=== PATIENT | female | born 1950 | race Caucasian/White ===

== ENCOUNTER 2016-06-27 07:14 | Emergency (ER) | payer MEDICARE, OTHER ==
[~2016-06-27] VITALS: Ht 162.6 cm; Wt 70.5 kg
[2016-06-27 07:27] VITALS: BP 150/88; PULSE 61; RESP 14; O2SAT 95
[2016-06-27] MEDS ORDERED: 0.9% Sodium Chloride 1,000 ML IV ONE (07:43)
[2016-06-27] MEDS ORDERED: cefTRIAXone Inj 2,000 MG in IV Premix 1 EACH IV ONE (07:45)
--- NOTE | 2016-06-27 07:51 | ED.REPORT ---
HPI- Female Date of Service Jun 27, 2016 ED Provider: Minda Frazier MD Pt is a 66 y/o female presenting to the ED c/o UTI-like symptoms onset 5 days ago. Pt reports that she had a bladder mesh placed 15 years ago and noticed about 3 weeks ago that she has had some decreased urination which she describes as "being able to urinate only when she leans forward". 5 days ago, she developed right upper CVA pain and believed her "bladder was aching". She went to Urgent Care in [facility] yesterday and she was diagnosed with a UTI and started on Cipro. She has had 1 dose and now feels nauseated and her symptoms have not improved. She denies fever, chills, vomiting. She was told to come in to the ED because of possible complications with her bladder mesh. Nursing Notes Stated Complaint: POSS KIDNEY/BLADDER INFECTION Chief Complaint: General Complaint Nursing Notes Reviewed: Yes Allergies: Coded Allergies: Contrast Media (Verified Allergy, Severe, stopped breathing, 06/27/16) Penicillins (Verified Allergy, Intermediate, hives, and swelling, 06/27/16) General Time Seen by MD: 07:42 Chief Complaint Other (UTI-like) Hx Obtained From: Patient Arrived By: Walk-in Sudden in Onset?: No Onset Occurred: 5 days ago Symptom Duration: Since onset Location: : Flank right Quality: Painful Severity: Current: Mild Severity: Maximum: Mild Recent Healthcare: Recent doctor visit, Previous diagnosis Past Medical History Past Medical History Notes: Iodine allergy: anaphylaxis Past Medical History Hx urinary incontinence, s/p bladder mesh Hx pyelonephritis Past Surgical History Bladder mesh Bladder lift Partial hysterectomy Ambulatory Status Independent Review of Systems Constitutional: Denies: Chills, Fever GI: Reports: Nausea, Denies: Vomiting Female: Reports: Dysuria, Urination decreased Complete sys rev & neg: except as marked. Physical Exam Initial Vital Signs Vital Signs (First) Date Time Temp Pulse Resp B/P Pulse Ox O2 Delivery O2 Flow Rate FiO2 06/27/16 07:27 36.2 61 14 150/88 95 06/27/16 09:51 Room Air Initial VS: Reviewed, Vital signs normal Head / Eyes: Atraumatic, Normocephalic, PERRL ENT: Mucous membranes moist, Conjunctiva normal, No scleral icterus Neck: Supple, Full range of motion Respiratory: Breath sounds normal, Clear to auscultation, No respiratory distress Extremities: Vascular intact, Neuro intact, No swelling, No tenderness Skin: Warm, Dry, No cyanosis Neurologic: Alert, Oriented, Nonfocal Psychiatric: Mood/affect normal, Behavior normal, Normal thought content Female Genitourinary: Atraumatic, External genitalia NL, No bleeding, No discharge Vaginal mesh appreciated. Not poking through the vaginal wall. Non-tender to palpation. No cervix. Tenderness along the anterior vaginal wall / posterior bladder wall Grade II cystocele General/Constitutional: Awake, Alert, No acute distress, Cooperative, Not toxic appearing Cardiovascular: Heart rate NL, Regular rhythm, Cap refill not delayed, Peripheral circulation NL Heart Sounds / Murmur: Positive: Systolic murmur present.. (II/) Abdomen: Atraumatic, Soft, Non-tender, No guarding, No rebound, BS normoactive , No distention, No palpable mass Back: Atraumatic, Full range of motion, Painless range of motion, No CVA tenderness Interpretation & Diagnostics Interpretation & Diagnostics: CT KUB w/out contrast: IMPRESSION: 1. No aspiration for right flank pain. 2. No evidence of urinary tract calcification, nor obstruction. 3. Normal appendix. 4. Small hiatal hernia. Dictated by: Jessica Carlson M.D. on 06/27/2016 at 10:35 Approved by: Jessica Carlson M.D. on 06/27/2016 at 10:35 Lab Results Interpretation Result Diagram: 06/27/16 0825 06/27/16 0825 Test 06/27/16 08:00 06/27/16 08:25 Urine Color Straw (YELLOW) Urine Appearance Hazy (CLEAR,HAZY) Urine pH 7.0 (5.0-8.0) Urine Specific [place] 1.010 (1.003-1.035) Urine Protein Negativemg/dL (NEG,TRACE) Urine Glucose (UA) Negativemg/dL (NEGATIVE) Urine Ketones Tracemg/dL (NEGATIVE) Urine Occult Blood Negative (NEGATIVE) Urine Nitrite Negative (NEGATIVE) Urine Bilirubin Negative (NEGATIVE) Urine Urobilinogen Normalmg/dL (NORMAL) Urine Leukocyte Esterase Negative (NEGATIVE) Urine RBC 0-2/hpf (0-2) Urine WBC 0-5/hpf (0-5) Urine Epithelial Cells Occasional/hpf (NONE-MOD) Urine Crystals None seen (NONE SEEN) Urine Bacteria None/hpf (NONE-FEW) Urine Hyaline Casts None/lpf (NONE) Urine Granular Casts None seen (NONE SEEN) Urine Waxy Casts None seen (NONE SEEN) Urine Red Blood Cell Casts None seen (NONE SEEN) Urine White Blood Cell Casts None seen (NONE SEEN) Urine Mucus None seen (None Seen) Urine Trichomonas None seen (NONE SEEN) Urine Yeast None (NONE SEEN) Urinalysis Comment None Urine Culture Reflexed Not indicated White Blood Count 8.4th/mm3 (3.8-10.1) Red Blood Count 4.44mil/mm3 (3.90-5.20) Hemoglobin 13.6g/dL (12.0-15.6) Hematocrit 38.8% (35.0-46.0) Mean Corpuscular Volume 87.4fL (81-100) Mean Corpuscular Hemoglobin 30.6pg (27.0-35.0) Mean Corpuscular Hemoglobin Concent 35.1% (32.0-37.0) Red Cell Distribution Width 13.3% (12.3-15.4) Platelet Count 249bil/L (150-400) Neutrophils (%) (Auto) 76.5% (40-74) Lymphocytes (%) (Auto) 15.7% (14-46) Monocytes (%) (Auto) 5.9% (4-12) Eosinophils (%) (Auto) 1.3% (0-5) Basophils (%) (Auto) 0.5% (0-3) Sodium Level 131mEq/L (134-144) Potassium Level 3.2mEq/L (3.5-5.2) Chloride Level 91mEq/L (97-108) Carbon Dioxide Level 25mmol/L (18-29) Blood Urea Nitrogen 7mg/dL (8-27) Creatinine 0.51mg/dL (0.57-1.00) Estimat Glomerular Filtration Rate 172mL/min (>59) Glucose Level 112mg/dL (60-99) Lactic Acid Level 0.8mmol/L (0.4-2.0) Calcium Level 9.7mg/dL (8.5-10.1) Total Bilirubin 0.3mg/dL (0.0-1.2) Aspartate Amino Transf (AST/SGOT) 16U/L (0-50) Alanine Aminotransferase (ALT/SGPT) 10U/L (0-32) Alkaline Phosphatase 40U/L (25-165) Total Protein 7.1g/dL (6.4-8.4) Albumin 4.3g/dL (3.4-5.0) Re-Eval/Medical Decision Re-Evaluation/Progress : Time of Eval: 10:48 Patient Status: Condition improved Re-Evaluation/Progress Note: Pt rechecked. Discussed lab and imaging results. Informed pt of plan for treatment. Pt understands and agrees with plan for treatment. F/U and RTER warnings given. All questions addressed. Counseled Regarding: Diagnosis, Lab results, Need for follow-up, When/why to return to ED Discharge & Departure Impression: Primary Impression: Malaise Additional Impression: Hypokalemia Ruled Out: Kidney stone, Pyelonephritis, UTI (urinary tract infection) Disposition: Home Discharge Condition All VS Reviewed: Yes Condition: Stable Additional Instructions: I am encouraged by your workup. Your urine was perfectly clear today but has been cultured based on the sample from yesterday. Your white blood cell count, the cells that fight infection, is normal Your potassium is a little bit low, you were given a dose of potassium in the ER Your kidney function reflects drinking quite a bit of water recently. Perhaps even too much. A good rule of thumb is to drink when you are thirsty. You can gauge your hydration on your urine, the goal is light yellow, but still a bit of color. You do have slight cystocele (your bladder falling). Please followup with your paleontology teacher surgeon to see options for addressing this I hope you feel better soon. Referrals: Peggy Martinez (PCP) [facility] Attestation Portions of this note were transcribed by Kamaljti Prasad. I, Dr. Frazier personally performed the history, physical exam and medical decision-making; I reviewed and confirmed the accuracy of the information in the transcribed note. Signed by Marcella Goodrich, 06/27/16 - 0900 copies to: Peggy Martinez Shawna L MD Jun 27, 2016 07:51 KAMALJIT PRASAD Jun 27, 2016 07:54
[2016-06-27 08:48] LABS: BASOPHILS % (AUTO) 0.5 % (0-3); EOSINOPHILS % (AUTO) 1.3 % (0-5); MONOCYTES % (AUTO) 5.9 % (4-12); Mean Corpuscular Hemoglobin 30.6 pg (27.0-35.0); Mean Corpuscular Volume 87.4 fL (81-100); NEUTROPHILS % (AUTO) 76.5 % (40-74); Platelet Count 249 bil/L (150-400)
[2016-06-27 09:13] LABS: APPEARANCE,URINE HAZY (CLEAR,HAZY); COLOR,URINE STRAW (YELLOW)
[2016-06-27 09:14] LABS: OCCULT BLOOD,URINE NEGATIVE (NEGATIVE); UROBILINOGEN,URINE NORMAL (NORMAL)
[2016-06-27 09:51] VITALS: BP 141/63; PULSE 56; RESP 16; O2SAT 98
--- NOTE | 2016-06-27 10:37 | DRSVH ---
PROCEDURE: CT KUB ([id number]) INDICATIONS: flank pain Right, TECHNIQUE: Noncontrast 5 mm thick sections acquired from the diaphragms to the symphysis. 5 mm thick coronal an d sagittal reformats were then performed. For radiation dose reduction, the following was used: aut omated exposure control, adjustment of mA and/or kV according to patient size. COMPARISON: None. FINDINGS: Image quality: Excellent. Lung bases: Left basilar scarring versus atelectasis is present. Lung bases are otherwise clear. Hea rt size is normal. Urinary system: Both kidneys are normal in size. No kidney stones. No hydronephrosis or perinephri c fat stranding. Both ureters appear non-dilated throughout their expected courses. Urinary bladder is decompressed. Other solid organs: Liver and spleen are normal in size. Gallbladder is within normal limits. Panc reas is normal in contours. No adrenal nodules. Peritoneum and bowel: A small hiatal hernia is present. Unenhanced bowel loops demonstrate normal wal l thickness and caliber. No free fluid or air. Normal appendix. Nodes and vessels: No retroperitoneal or mesenteric adenopathy by size criteria. Aorta and inferior vena cava are normal in caliber. Abdominal wall: No ventral hernias. Pelvis: No free pelvic fluid. No inguinal hernias or adenopathy. Bones: No suspicious bony lesions. No vertebral body compression fractures. IMPRESSION: 1. No aspiration for right flank pain. 2. No evidence of urinary tract calcification, nor obstruction. 3. Normal appendix. 4. Small hiatal hernia. Dictated by: Jessica Carlson M.D. on 06/27/2016 at 10:35 Approved by: Jessica Carlson M.D. on 06/27/2016 at 10:35
[2016-06-27] MEDS ORDERED: Potassium Chloride 20 mEq SR Tablet PO ONE (10:45)
[2016-06-27 11:22] VITALS: BP 141/63; PULSE 56; RESP 16; O2SAT 98
[2016-09-24] MEDS ORDERED: ALPR1TAB7 PO (11:40)
[2016-09-24] MEDS ORDERED: MULT-1018 PO (11:40)
[2016-09-24] MEDS ORDERED: CHOL500011 PO (11:40)
[2016-09-24] MEDS ORDERED: POLY17PO6 PO (11:40)
[2016-09-24] MEDS ORDERED: HYDR25TA4 PO (11:40)
[2016-09-24] MEDS ORDERED: biotin (11:40)
[2016-09-24] MEDS ORDERED: DIPH25CA6 PO (11:40)
[2016-09-24] MEDS ORDERED: selenium PO (11:40)
[2016-09-24] MEDS ORDERED: ALBU18HF INH (11:40)
[2016-09-24] MEDS ORDERED: MAGN400T39 PO (11:40)
[2016-09-24] MEDS ORDERED: POTA99TA21 PO (11:40)
== END 2016-06-27 11:22 | disposition home or self-care (01) ==
LOC: SED 07:14
DX: R53.81 Other malaise (principal); E87.6 Hypokalemia; Z88.0 Allergy status to penicillin; Z91.041 Radiographic dye allergy status
CPT/HCPCS: 36415; 74176; 80053; 81000; 83605; 85025; 87040; 87086; 96365; 96375; 99285; J0696; J7030

== ENCOUNTER 2016-09-25 05:36 | Day surgery (SDC) | payer MEDICARE, OTHER ==
[2016-09-25] VITALS (15 sets, daily range): BP systolic 98–136; BP diastolic 48–77; PULSE 54–71; RESP 8–16; O2SAT 92–97
[~2016-09-25] VITALS: Ht 162.6 cm; Wt 74.0 kg
[~2016-09-25 05:36] MED LIST: ALBU18HF INH; ALPR1TAB7 PO; CHOL500011 PO; DIPH25CA6 PO; HYDR25TA4 PO; MAGN400T39 PO; MULT-1018 PO; POLY17PO6 PO; POTA99TA21 PO; biotin; selenium PO
[2016-09-25] MEDS ORDERED: Neostigmine 1 mg/mL 10 mL Inj ONE (05:37)
[2016-09-25] MEDS ORDERED: Ondansetron 2 mg/mL 2 mL Inj ONE (05:37)
[2016-09-25] MEDS ORDERED: fentaNYL-PF 50 mCg/mL 2 mL Inj ONE (05:37)
[2016-09-25] MEDS ORDERED: Glycopyrrolate 0.2 MG/ML 1mL Inj ONE (05:37)
[2016-09-25] MEDS ORDERED: Dexamethasone 4 mg/mL Inj ONE (05:37)
[2016-09-25] MEDS ORDERED: Propofol 10,000 mCg/mL 20 mL Inj ONE (05:37)
[2016-09-25] MEDS ORDERED: MetoCLOpramide 5 mg/mL 2 mL Inj ONE (05:37)
[2016-09-25] MEDS: Lactated Ringer's 1,000 ML IV SCH ×2 (05:39→07:30)
[2016-09-25] MEDS ORDERED: metroNIDAZOLE Inj 500 MG in IV Premix 1 EACH IV ONE (06:00)
[2016-09-25] MEDS ORDERED: GENTAMICIN IV ONE (06:00)
[2016-09-25] MEDS ORDERED: SODIUM CHLORIDE 0.9% IV ONE (06:00)
--- NOTE | 2016-09-25 07:19 | PCM.HPANE ---
Patient Data Surgeon Admitting Provider: Attending Provider:Sylvain Ovalles MD Primary Care Physician:Peggy Martinez Other Provider:Shasta Arriaga Anesthesia Reason for Visit Cystocele Ht/WT & BMI Height (Feet): 5 Height (Inches): 4 Weight (Kilograms): 74 Body Mass Index 27.00 Allergies Coded Allergies: Contrast Media (Verified Allergy, Severe, stopped breathing, 06/27/16) hydrocodone (Verified Allergy, Severe, n/v, 09/25/16) lisinopril (Verified Allergy, Severe, leg swelling, 09/25/16) morphine (Verified Allergy, Severe, n/v, 09/25/16) Penicillins (Verified Allergy, Intermediate, hives, and swelling, 06/27/16) amlodipine (Verified Allergy, Unknown, peripheral edema, 09/24/16) atenolol (Verified Allergy, Unknown, peripheral edema, 09/24/16) iodine (Verified Allergy, Unknown, 09/24/16) oxycodone (Verified Allergy, Unknown, nausea/vomiting, 09/24/16) Past Anesthesia History Anesthesia History: Denies:: Anesthesia Reactions, Fam Anesthesia Reaction Diabetes History Hx Diabetes?: No MRSA MRSA: No Medications Hypertension Medication: Yes Home Meds Incl Beta Olivia: No Reported Medications Polyethylene Glycol 3350 (Miralax)17 Gm Powd.pack17 Gm PO DAILY 09/24/16 Magnesium Oxide (Magnesium)400 Mg [id number] Mg PO DAILY 09/24/16 diphenhydrAMINE HCl (Benadryl)25 Mg Badpbgl17 Mg PO Q4 PRN For Itching Ref 0 09/24/16 [selenium] No Conflict Check1 Tab PO DAILY 09/24/16 Potassium Gluconate (Potassium)99 Mg Teaprk70 Mg PO DAILY 09/24/16 [biotin] No Conflict Check1 Tab DAILY 09/24/16 Cholecalciferol (Vitamin D3) (Vitamin D3)5,000 Unit Tablet5,000 Unit PO DAILY 09/24/16 Multivitamin (Multi Vitamin Daily)1 Each Tablet1 Each PO DAILY 30 Days Ref 0 09/24/16 Albuterol Sulfate (Ventolin HFA Inhaler)200 Puff/18 Gm Inhaler1 Puff INH Q4 PRN For Wheezing #1 INHALER Ref 0 09/24/16 Hydrochlorothiazide 25 Mg Dxpaav69 Mg PO DAILY 30 Days Ref 0 09/24/16 Alprazolam 1 Mg Tablet1 Mg PO BID PRN For Anxiety Ref 0 09/24/16 History History of ENT Problems?: Yes HEENT History: Positive for:: Hearing Problem (rt mastoidectomy, tympanoplasty feb 2016) Sinus Problem (allergy shots weekly) Denies:: Cataracts (forming in one eye) Glaucoma Hx of Heart Problems?: Yes Cardiovascular History: Positive for:: Heart Murmur (systolic murmur "forever ") Hypertension Denies:: Congestive Heart Failure Valvular Heart Disease (2017- ef 60-65%) Hx of Respiratory Problem?: Yes Respiratory History: Positive for:: Pneumonia (hx of hypersensitive pneumonitis 2001) Use of Inhalers / NEBS (ventolin) Denies:: COPD Emphysema Oxygen Administration Tuberculosis Use of C-PAP Machine Other Resp Pertinent History: hypersensitive pneumonitis hx- treated 2005- treated with vaping marijuana (CBD) no residual sx at this time Hx Neurologic Problems?: Yes Neurological History: Positive for:: CVA (2001 series of small strokes- residual eye weakness when tired) Dizziness (related to right ear difficulty) Headaches Denies:: Dementia Multiple Sclerosis Parkinson's Disease Seizures Hx of GI Problems?: Yes Gastrointestinal History: Positive for:: Hiatal Hernia (hx of neal fundoplication 2004) Denies:: Cirrhosis Gall Bladder Disease Gastroesphageal Reflux (none since neal) Gastrointestinal Bleeding Heartburn Liver Disease Rectal Bleeding Hx of Problems?: Yes Genitourinary History: Denies:: Kidney Stones Urinary Tract Infection Female Hx: Denies:: Currently Problems with Breasts? Skin History: Denies:: History Skin Disorders? Pressure Ulcers Hx Musculoskeletal Problems?: Yes Musculoskeletal History: Positive for:: Back Injury (1978 lumbar surgery l4-5) Musculoskeletal Trauma (3 or 4 knee surgery) Osteoarthritis (right hand) Denies:: Fibromyalgia Myasthenia Gravis Systemic Lupus Hx of Psycho/Social Problems?: Yes Psycho Social History: Positive for:: Anxiety (PTSD, anxiety) Hx Surgeries?: Yes (bladder sling, cystocele, partial hyster, tympanoplasty, lami) Hx Any Other Health Problems?: Yes Other History: Positive for:: Thyroid Disease (hx of prior thyroid rx- on no meds currently) Denies:: Cancer Hx Diabetes: No Hx Alcohol Use: YesAlcoholic Drinks Per Day: one or two drinks dailyHx Substance Use: Yes (vapes marijuana 3xweekly) Smoking Status: Never Smoker Have You Smoked inLast 12 mo: No Stop/Bang S-Snoring: Do You Snore Loudly: No T-Tired: feel tired, fatigued: No O-Obsered: Observed not breath: No P-Blood Pressure: treated: No B- Body Mass Index > 35 kg/m2: No A- Age over 50: Yes N- Neck Large Circumference: No G- Gender Male: No JOHANA Total Score: 1 JOHANA Risk Assessment: Low Risk, <3 Yes Risk Assessment Category Category 1A: Patient has history of documented sleep apnea, and HAS NOT received any narcotic, sedative or anesthesia administration during this stay. Category 1B: Patient has history of documented sleep apnea, and HAS received any narcotic , sedative or anesthesia administration during this stay Category 2: Patient has SUSPECTED Obstructive Sleep Apnea, and HAS received any narcotic , sedative or anesthesia administration during this stay. Category 3: Patient has SUSPECTED Obstructive Sleep Apnea and HAS NOT received narcotic, sedative or anesthesia administration during this stay. Category 4: Outpatient in Procedural Areas with known sleep apnea or who screen positive for High Risk via the STOP/BANG questionnaire. Exam Exam Vital Signs Vital Signs Date Time Temp Pulse Resp B/P Pulse Ox O2 Delivery O2 Flow Rate FiO2 09/25/16 05:57 36 54 16 116/70 96 Room Air General Appearance: Alert HEENT/AIRWAY: MP 1 Lungs: Clear to Auscultation Heart: Exam Unremarkable Meds/Labs/Diagnostics Admission Meds Current Medications Lactated Ringer's (Lr) 1,000 ml @ 120 mls/hr Q8H20M IV Last administered on t 05:39; Start 09/25/16 at 05:00; Stop 09/25/16 at 13:19 Plan Impression Patient chart reviewed, patient interviewed and anesthestic plan with risks, benefits, and alternatives discussed, and informed consent obtained. NPO Status: 2100 09/24/16 ASA Physical Status: ASA2 Mod Systemic Disease Anesthetic Plan: GA Bene/Risks/Altern/Consents: Yes HP Complete Prior to Induction: Yes Theron Mora MD Sep 25, 2016 07:19
[2016-09-25] MEDS ORDERED: Lactated Ringer's 500 ML IV PRN (07:57)
[2016-09-25] MEDS ORDERED: Lactated Ringer's 1,000 ML IV SCH (07:57)
[2016-09-25] MEDS ORDERED: fentaNYL-PF 50 mCg/mL 2 mL Inj IVPUSH PRN (08:00)
[2016-09-25] MEDS ORDERED: Ondansetron 2 mg/mL 2 mL Inj IVPUSH PRN (08:00)
[2016-09-25] MEDS ORDERED: EPHEDrine Sulfate 50 mg/mL Inj IVPUSH PRN (08:00)
[2016-09-25] MEDS ORDERED: Phenylephrine 10,000 mCg/mL Inj IVPUSH PRN (08:00)
[2016-09-25] MEDS ORDERED: MetoCLOpramide 5 mg/mL 2 mL Inj IVPUSH PRN ×2 (08:00→11:10)
[2016-09-25] MEDS ORDERED: Dexamethasone 4 mg/mL Inj IVPUSH PRN (08:00)
[2016-09-25] MEDS ORDERED: Atropine 0.4 mg/mL Inj IVPUSH PRN (08:00)
[2016-09-25] MEDS ORDERED: Bupivacaine-MPF 0.5% W/EPI 30 mL Inj INFILTRATE ONE (08:05)
[2016-09-25] MEDS ORDERED: Lidocaine 1%-Epi 1:100,000 20 mL Inj INFILTRATE ONE (09:13)
[2016-09-25] MEDS ORDERED: Vasopressin 20 Unit/mL Inj IVPUSH ONE (10:13)
[2016-09-25] MEDS ORDERED: Lactated Ringer's 1,000 ML IV ONE (10:15)
[2016-09-25] MEDS ORDERED: diphenhydrAMINE 25 mg Capsule PO PRN (11:10)
[2016-09-25] MEDS: HYDROmorphone 1 mg/mL Inj IVPUSH PRN ×6 (11:20→21:41)
--- NOTE | 2016-09-25 12:04 | PCM.ANEP1 ---
Post Anesthesia Phase 1 PACU Phase 1 Assessment Vital Signs Vital Signs Date Time Temp Pulse Resp B/P Pulse Ox O2 Delivery O2 Flow Rate FiO2 09/25/16 05:57 36 54 16 116/70 96 Room Air Anesthetic Administered: GA Level of Alertness: Awake, talking LUGO's with Equal Strength: Yes Pain: Yes Nausea or Vomiting: No Oxygen Delivery: Room Air Lungs: Clear to Auscultation Dermatome Level: Full Sensation Summary a little disoriented on arrival sat 93 hr 65 bp 126/106 [id number] Theron Mora MD Sep 25, 2016 12:04
--- NOTE | 2016-09-25 12:05 | PCM.ANEP2 ---
Post Anesthesia Evaluation ASA/CMS Post Anesthesia VS in Patient's Normal Range?: Yes Resp Stable; Airway Patent?: Yes CV Function & Hydration Stable: Yes Mental Status Recovered?: Yes Pain control Satisfactory?: Yes N/V Control Satisfactory?: Yes Theron Mora MD Sep 25, 2016 12:05
[2016-09-25] MEDS: Ondansetron 2 mg/mL 2 mL Inj IVPUSH PRN ×2 (14:59→21:40)
--- NOTE | 2016-09-25 18:02 | NUR ---
POST OP Patient arrived at 1350, from a Cystocele ' Labs-not drawn Neuro- LOC x3 CVS-Denies chest pain PLUM-RA 98% GI- Advance as tolerated -Caballero 300ml out SKIN- Left and right abdominal sites and umbilicus c/d/i PAIN- IVP Diluadid 1mg given q3 x2 IV-S/L PLAN D/C TOMORROW
--- NOTE | 2016-09-25 21:02 | OP ---
[address] [address] OPERATIVE REPORT PATIENT: LUCA RUELAS : 1950 MR#: [id number] ADMIT: 09/25/2016 JOB ID: [id number] DATE OF SURGERY: 09/25/2016 PROCEDURE: Laparoscopic bilateral salpingo-oophorectomy. Laparoscopic suspension of the vaginal cuff. Anterior colporrhaphy. PREOPERATIVE DIAGNOSIS(ES): Vaginal cuff prolapse, cystocele, family history of ovarian cancer. POSTOPERATIVE DIAGNOSIS(ES): Vaginal cuff prolapse, cystocele, family history of ovarian cancer. SURGEON: Sylvain Ovalles MD SALES ROUTE DRIVER HELPER: Fred Patel MD. Assistance of Dr. Patel was necessary for exposure, retraction of the tissue, assistance in anterior colporrhaphy with exposure and retraction and assistance with proper visualization of all the structures intraoperatively. ANESTHESIA: General. ESTIMATED BLOOD LOSS: 30 mL. ESTIMATED URINE OUTPUT: 200 mL. FLUIDS: 1.4 L of lactated Ringer. COMPLICATIONS: None. FINDINGS: The uterus and cervix were surgically absent. There was grade 2 vaginal cuff prolapse, grade 2 cystocele. Atrophic ovaries and fallopian tubes. INDICATION FOR THE PROCEDURE: To patient is a 66-year-old, status post prior vaginal hysterectomy. Was complaining of pelvic floor relaxation, cystocele, bulging in the vagina. She had vaginal cuff prolapse. The patient has a history of ovarian cancer in her family. She consented for laparoscopic suspension of the vaginal cuff with bilateral salpingo-oophorectomy and anterior colporrhaphy. PROCEDURE: The patient was brought to the operating room, where she underwent general anesthesia without difficulty. The patient was placed in a dorsal lithotomy position using Kris stirrups. She was prepped and draped in the usual surgical fashion. She received preoperative antibiotics. The patient is allergic to PENICILLIN. She received gentamicin and metronidazole. Lovenox was given subcu for DVT prophylaxis. A time-out was performed verifying correct patient, correct procedure. Maximilian Hugger was used to maintain adequate core body temperature. Sponge stick on a ring forceps was placed into the vagina preoperatively, Caballero catheter was placed as well. Attention was then directed to the patient's abdomen where the periumbilical area was locally infiltrated with solution of Marcaine and epinephrine, Veress needle was introduced and abdomen was insufflated with CO2 gas until appropriate pneumoperitoneum was achieved. A 5 mm vertical subumbilical incision was made with a scalpel and a 5 mm trocar was placed through the incision. Two additional incisions were made, on in the patient's right lower quadrant 5 mm incision, 5 cm anterior and medial from the anterior-superior iliac spine. A third incision was made in the patient's right lower quadrant, 11 mm in size. Also, 5 mm superior and medial from the anterior-superior iliac spine. A 5 mm trocar was placed through the left lower quadrant incision and 10 mm trocar was placed through the right lower quadrant incision. Using Thunderbeat instrument, the patient's right ovary and adnexa, fallopian tube were visualized, dissected, removed. Attention was then directed to the patient's contralateral left side where the ovary was identified adherent to the pelvic wall together with the fallopian tubes. Lysis of adhesions was provided. The infundibulopelvic ligament was transected and left ovary together with the left fallopian tube was removed. The EndoCatch bag was placed through the right trocar. All the specimens were placed into the back and removed from the abdomen. Right and left ovaries were submitted to pathology in two separate containers. The vaginal cuff was elevated in the pelvis with a sponge stick that was placed into the vagina. The patient's right uterosacral ligament was identified. The ureter was identified on that side as well and followed from the pelvic rim to its entrance into the bladder. Using external knot pusher and 2-0 Prolene, the right corner from the vaginal cuff was reapproximated to the short and right uterosacral ligaments. Three stitches were applied. Attention was then directed to the patient's contralateral side, where in a similar fashion, using external knot pusher and 2-0 Prolene as a suture, the right corner of the vaginal cuff was reapproximated to the uterosacral ligament. Attention was then directed to the patient's vagina where cystocele repair was done. The incision over the area of the cystocele was made after the vaginal mucosa was injected with solution of vasopressin with normal saline. It was done in the sagittal plane from the bladder neck towards the vaginal cuff. Dissection of the vaginal mucosa from the endopelvic fascia was provided with Metzenbaum scissors. The residual vaginal mucosa was removed with Metzenbaum scissors and discarded. Using 2-0 Vicryl several interrupted plicating sutures were placed over the area of the cystocele until the defect was reduced. The vaginal mucosa was reapproximated with 2-0 Vicryl in a running, locking fashion. Cystocele was repaired, the Caballero catheter was removed and cystoscopy was performed using 30-degree scope. Patency of both ureters was verified. Good ureteral jets were seen. The vaginal mucosa, bladder mucosa and urethra were intact. After cystoscopy was completed, a Caballero catheter was replaced. Vaginal packing was placed using vaginal gauze with Premarin cream applied to it. Attention was then directed to the patient's abdomen. Final laparoscopic look showed good hemostasis and pelvic support. The patient's 11 mm right lower quadrant incision was closed with 0-Vicryl using Simone-Marcelo device. After that, the abdomen was desufflated from the CO2 gas and all the trocars were removed. The skin incisions were reapproximated with 4-0 Monocryl. Dermabond, glue and hemostatic dressings were applied. The patient was repositioned back into the supine position. She tolerated the procedure well and was transferred to the recovery room in stable condition. BOBBI
[2016-09-26 00:20] VITALS: BP 110/68; PULSE 71; RESP 16; O2SAT 97
[2016-09-26] MEDS: HYDROmorphone 1 mg/mL Inj IVPUSH PRN ×6 (01:05→18:21)
[2016-09-26 02:22] VITALS: BP 110/68; PULSE 71; RESP 16; O2SAT 97
[2016-09-26] MEDS: Ondansetron 2 mg/mL 2 mL Inj IVPUSH PRN ×4 (04:34→18:24)
--- NOTE | 2016-09-26 06:10 | NUR ---
Pain Pt has been c/o pain and requesting dilaudid, pt is nervous about changing from dilaudid down to tylenol and ibuprofen and that pain won't be managed well. Pt is overall doing very well and seems ready for d/c.
[2016-09-26 06:33] VITALS: BP 116/70; PULSE 66; RESP 16; O2SAT 96
--- NOTE | 2016-09-26 08:21 | PCM.DIMED ---
Discharge Instructions Date of Service Sep 26, 2016 Dates of Hospitalization Diet No restrictions Activity No restrictions Call your provider Fever or Chills, Shortness of breath, Bleeding, Vomitting, Excessive diarrhea Patient Instructions Follow-up with PCP in: 2 weeks Sylvain Ovalles MD Sep 26, 2016 08:21
[2016-09-26] MEDS ORDERED: SULF1TAB35 PO (08:24)
[2016-09-26] MEDS ORDERED: HYDR2TAB27 PO (08:25)
[2016-09-26] MEDS ORDERED: BISA10SU61 RC (08:30)
[2016-09-26] MEDS ORDERED: DOCU-41 PO (08:30)
[2016-09-26] MEDS ORDERED: PROM25TA14 PO (08:30)
--- NOTE | 2016-09-26 11:00 | NUR ---
Social Work-initial assessment/ discharge: Data:See initial assessment. Pt is a 66 y/o female who was admitted for cystocele Per H&P. Pt's insurance is [facility] and [employer] [facility] [place] and PCP Is Peggy Martinez. EMR Reviewed. SW met with pt at bedside to discuss discharge planning,SW role explained. Pt resides at home with her where she remains independent with ADLs. Pt drives and does not use any DME. Pt has no HH or SNF history. Pt has no terminal gauger care or VA benefits. SW discussed DPOA/ advanced directive, pt confirms she has completed this, SW encouraged a copy to be brought in. Pt's to provide transport home today. No discharge needs identified. All updated and agreeable to plan. Assessment:Pt who is independent at baseline. Plan:Pt to discharge home today via POv. No discharge needs identified. All updated and agreeable to plan. JERMAINE Gillette Addendum: 09/26/16 at 1103 by JOSAFAT JEFFERSON Amended: Links added.
--- NOTE | 2016-09-26 11:00 | NUR ---
Caballero/Pain Caballero removed at 1030 AM. Vaginal packing removed per Dr. Ovalles's verbal order to remove. Pt tolerated well. Pt reporting abdominal bloating and discomfort. Adv pt that this is to be expected after surgery. Adv with ambulation and time it should get better. Hard copy prescriptions given to pt . Pt will not be discharged until she is able to urinate post Caballero removal. Addendum: 09/26/16 at 1556 by JAMES CABRERA RN Pt has not urinated on own since Caballero removal. Bladder scanned her at about 1300 and about 600cc in bladder. In and out Caballero performed and close to 900cc out. Pt felt much relief after that. I left a msg on Dr. Ovalles's cell phone. No return call at this point. Report given to raudel ROSENBAUM and he will contact on-call SENIOR SYSTEMS ANALYST M.D. if things don't progress to discharge with this pt. Pt and aware of plan.
[2016-09-26] MEDS ORDERED: Lidocaine Topical 2% 30 mL Jelly ONE (14:24)
[2016-09-26 15:40] VITALS: BP 154/96; PULSE 66; RESP 18; O2SAT 95
--- NOTE | 2016-09-26 16:48 | NUR ---
unable to void Dr Ovalles notified that patient has been unable to void. received new orders. if unable to void to reinsert Caballero catheter, DC and have patient F/U with him on Saturday. patient notified of plan. patient uncomfortable with plan and doesn't want to go home with a Caballero catheter. patient agreed to continue to attempt to void. if able to void on own then she can go home without catheter. patient verbalized understanding and agreed with plan of care.
--- NOTE | 2016-09-26 17:57 | NUR ---
voiding patient able to void, 1st void 150ml out. then able to void again 400ml. patient reports feeling more comfortable about going home.
[2016-09-26 18:00] LABS: APPEARANCE,URINE CLEAR (CLEAR,HAZY); COLOR,URINE YELLOW (YELLOW); PH,URINE 7.5 (5.0-8.0)
[2016-09-26 18:01] LABS: OCCULT BLOOD,URINE MODERATE (NEGATIVE); UROBILINOGEN,URINE NORMAL (NORMAL)
[2016-09-26 18:14] VITALS: BP 136/89; PULSE 70; RESP 18; O2SAT 95
--- NOTE | 2016-09-26 18:37 | NUR ---
Discharge patient able to void several times on own. Discharge instructions reviewed with patient and spouse. medications and follow-up plan reviewed. S/S to report to doctor reviewed. patient and spouse both verbalized understanding and agreed with plan of care. patient c/o lower abd pain post-op. pain and anti-nausea medication given prior to discharge. patient tolerated well. patient discharged home, to drive.
--- NOTE | 2016-09-26 23:03 | DIS ---
[address] [address] DISCHARGE SUMMARY PATIENT: LUCA RUELAS : 1950 MR#: [id number] ADMIT: 09/25/2016 JOB ID: [id number] DIS: 09/26/2016 ADMITTING DIAGNOSES: 1. Vaginal cuff prolapse. 2. Cystocele. DISCHARGE DIAGNOSES: 1. Vaginal cuff prolapse. 2. Cystocele. HOSPITAL COURSE: The patient is a 66-year-old, 2, para 2, that was admitted on September 25, 2016, for vaginal cuff suspension with cystocele repair because of pelvic floor relaxation. The surgery went uncomplicated, estimated blood loss was 30 mL. The vaginal cuff suspension was done and cystocele repair was done as well. The patient was kept overnight for pain management and anxiety symptoms. Vaginal packing was placed after surgery. She was transferred to the recovery room and observation unit in stable condition. The patient was seen on the following day, September 26, 2016. She has not had any significant complaints except of postoperative incisional pain. Trocar skin incisions were dry, clean and intact. Her vital signs were stable. Temperature 36.6, pulse 66, respiratory rate 16, blood pressure 116/70. The abdomen was soft, nontender, nondistended. The vaginal packing was removed, there was no vaginal discharge. The Caballero catheter was removed as well. The patient was ambulating, tolerating regular food well. Pulse oximetry on room air was 99%. The patient was discharged home in stable condition with all discharge criteria met on September 26, 2016, on postoperative day one. She received pain medications including Dilaudid 4 mg p.o. q.4 h. p.r.n. for pain, Phenergan 25 mg p.o. q.4 h. p.r.n. for nausea, and Dulcolax suppositories 25 mg KS daily as needed. Follow up visit in [facility]PER[facility] clinic is scheduled in two weeks.
--- NOTE | 2016-09-27 15:27 | PATH ---
SURGICAL PATHOLOGY Attending Physician:Sylvain Ovalles MD CASE STATUS: Signed Out PATIENT NAME: LUCA RUELAS PID: [id number] : 1950 DATE COLLECTED:09/25/2016 16:17 SPECIMEN: 1: Left ovary +/- tube, non-tumor 2: Right ovary +/- tube, non-tumor CLINICAL HISTORY: CYSTOCELE, VAGINAL CUFF PROLAPSE, FAMILY HISTORY OVARIAN CANCER 1. LEFT OVARY AND FALLOPIAN TUBE, SALPINGO-OOPHORECTOMY 2. RIGHT OVARY AND FALLOPIAN TUBE, SALPINGO-OOPHORECTOMY FINAL DIAGNOSIS: 1.LEFT OVARY AND FALLOPIAN TUBE: ENDOSALPINGIOSIS OF OVARY AND TUBO-OVARIAN ADHESIONS. 2.RIGHT OVARY AND FALLOPIAN TUBE: ENDOSALPINGIOSIS OF OVARY AND TUBO-OVARIAN ADHESIONS. ICD10 code N73.6 GROSS DESCRIPTION: The specimens are received in formalin, labeled with the patient's name, and sublabeled as the following: (1) left ovary; (2) right ovary. (1) The specimen consists of an ovary (2.4 x 1.2 x 1.2 cm) with an attached fallopian tube (length-3.8 cm, diameter-0.4 cm). The fimbria are difficult to identify. The ovary has -white smooth shiny flat serosa. The parenchyma is rose-white with corpus albicans identified. The fallopian tube has -pink smooth shiny serosa and a rose unremarkable lumen. Section code: (1A-1C) ovary, serially sectioned, entirely submitted; (1D) fallopian tube, serially sectioned, customer field representative; (1E) possible fimbria, bivalved, entirely submitted. (2) The specimen consists of an ovary (1.5 x 1.1 x 1.0 cm) with an attached fimbriated fallopian tube (length-3.2 cm, diameter-0.3 cm) and a detached nodule (2.3 x 1.5 x 1.3 cm). The ovary has mancini yellow smooth shiny flat serosa. The parenchyma is rose-white with corpus albicans identified. The fallopian tube has -pink smooth shiny serosa and a rose unremarkable lumen. The nodule has a -white smooth shiny flat and partially translucent cystic surface. The cut surface is bright white solid and multicystic. The cavities (0.1 cm-1.5 cm) containing clear colorless fluid and clear trisha solid waxy and clear yellow gelatinous material. The linings are smooth and flat with no excrescences identified. Section code: (2A-2B) ovary, serially sectioned, entirely submitted; (2C) fallopian tube, serially sectioned, customer field representative; (2D) fimbria, bivalved, entirely submitted; (2E) nodule, longitudinally sectioned, customer field representative. 09/26/16 JM MICRO DESCRIPTION: See diagnosis. ICD-9 CODES: CPT CODES: 1: 21622 2: 88787 Electronically Signed Out Lizzy Coleman MD Merged With [facility] [address], [place] [address] Technical component performed at [facility], [address] [place] [address] Ave[address], [place], [address]
== END 2016-09-26 18:30 | disposition home or self-care (01) ==
LOC: SAS 05:36 → MOC 13:55 → SAS 23:59
PROVIDERS: ATTEND Legal Medicine
DX: N81.11 Cystocele, midline (principal); N94.89 Other specified conditions associated with female genital organs and menstrual cycle; N73.6 Female pelvic peritoneal adhesions (postinfective); I10 Essential (primary) hypertension; R01.1 Cardiac murmur, unspecified; K44.9 Diaphragmatic hernia without obstruction or gangrene; F41.9 Anxiety disorder, unspecified; F43.10 Post-traumatic stress disorder, unspecified; Z79.899 Other long term (current) drug therapy
CPT/HCPCS: 57240; 57425; 58661; 81000; 87086; 87088; 88305; J0131; J1100; J1170; J1580; J1650; J1885; J2175; J2250; J2405; J2710; J2765; J3010; J3490; J7120; Q0169

== ENCOUNTER 2016-09-27 12:12 | Emergency (ER) | payer MEDICARE, OTHER ==
[~2016-09-27 12:12] MED LIST changes: +BISA10SU61 RC; +DOCU-41 PO; +HYDR2TAB27 PO; +PROM25TA14 PO; +SULF1TAB35 PO
[2016-09-27 12:20] VITALS: BP 140/80; PULSE 82; RESP 20; O2SAT 100
--- NOTE | 2016-09-27 12:33 | ED.REPORT ---
HPI-Abd Pain F 40 and Over Date of Service Sep 27, 2016 ED Provider: Brandin Chi MD Patient is a 66 year old female with a history of who presents to the ED complaining of urinary retention and lower abdominal pain status post cystocele and vaginal prolapse repair 09/26/16. Associated symptoms include bilateral flank and low back pain. Symptoms have been treated with peridium and 2mg of Dilaudid today without relief. Nursing Notes Stated Complaint: COMPLICATIONS FROM SURGERY Chief Complaint: Female Abdominal Pain Nursing Notes Reviewed: Yes Allergies: Coded Allergies: Contrast Media (Verified Allergy, Severe, stopped breathing, 09/27/16) hydrocodone (Verified Allergy, Severe, n/v, 09/27/16) lisinopril (Verified Allergy, Severe, leg swelling, 09/27/16) morphine (Verified Allergy, Severe, n/v, 09/27/16) Penicillins (Verified Allergy, Intermediate, hives, and swelling, 06/27/16) amlodipine (Verified Allergy, Unknown, peripheral edema, 09/27/16) atenolol (Verified Allergy, Unknown, peripheral edema, 09/27/16) iodine (Verified Allergy, Unknown, 09/27/16) oxycodone (Verified Allergy, Unknown, nausea/vomiting, 09/27/16) Scheduled ([biotin]) 1 TAB DAILY ([selenium]) 1 TAB PO DAILY Cholecalciferol (Vitamin D3) (Vitamin D3) 5,000 Unit Tablet 5,000 UNIT PO DAILY Hydrochlorothiazide (Hydrochlorothiazide) 25 Mg Tablet 25 MG PO DAILY Magnesium Oxide (Magnesium) 400 Mg Tablet 800 MG PO DAILY Multivitamin (Multi Vitamin Daily) 1 Each Tablet 1 EACH PO DAILY Polyethylene Glycol 3350 (Miralax) 17 Gm Powd.pack 17 GM PO DAILY Potassium Gluconate (Potassium) 99 Mg Tablet 99 MG PO DAILY Sulfamethoxazole/Trimeth 800-160 mg (Bactrim DS 800-160 mg) 1 Each Tablet 1 TABLET PO BID Scheduled PRN Albuterol Sulfate (Ventolin HFA Inhaler) 200 Puff/18 Gm Inhaler 1 PUFF INH Q4 PRN PRN For Wheezing Alprazolam (Alprazolam) 1 Mg Tablet 1 MG PO BID PRN PRN For Anxiety Bisacodyl (Dulcolax Rectal) 10 Mg Supp.rect 10 MG RC DAILY PRN PRN constipation Docusate Sodium (Colace) 100 Mg Capsule 100 MG PO BID PRN PRN For Constipation Hydromorphone (Dilaudid) 2 Mg Tablet 2 MG PO Q4H PRN PRN Pain Promethazine (Promethazine) 25 Mg Tablet 25 MG PO Q6H PRN PRN For Nausea diphenhydrAMINE HCl (Benadryl) 25 Mg Capsule 25 MG PO Q4 PRN PRN For Itching General Time Seen by MD: 12:29 Chief Complaint Abdominal pain, Unable to urinate Hx Obtained From: Patient Arrived By: Walk-in Sudden in Onset?: Yes Onset Occurred: Yesterday Context of Onset: Recent surgery Symptom Duration: Since onset Location: : Abdomen lower Quality: Painful Severity: Current: Moderate Severity: Maximum: Moderate Recent Healthcare: Recent doctor visit, Recent hospitalization Similar Sx Previous: No Past Medical History Past Medical History Notes: Iodine allergy: anaphylaxis Past Medical History Hx urinary incontinence, s/p bladder mesh Hx pyelonephritis stroke systolic murmur Past Surgical History Bladder mesh Bladder lift Partial hysterectomy right mastoidectomy tympanoplasty cystocele repair vaginal prolapse repair Smoking History Never Smoker Social History Drug Use: THC Other Social History: Good social support, Ambulatory Status Independent Review of Systems Constitutional: Denies: Chills, Fever Respiratory: Denies: Non-productive cough, Shortness of breath Cardiovascular: Denies: Chest pain GI: Reports: Abdominal pain, Denies: Constipation, Diarrhea Female: Reports: Flank pain, Urinary frequency, Urination decreased Complete sys rev & neg: except as marked. Physical Exam Vital Signs Vital Signs (First) Date Time Temp Pulse Resp B/P Pulse Ox O2 Delivery O2 Flow Rate FiO2 09/27/16 12:20 36.7 82 20 140/80 100 Room Air Initial VS: Reviewed General/Constitutional: Awake, Alert, No acute distress Respiratory / Chest: Atraumatic, Breath sounds NL, Breath sounds = bilat, No respiratory distress Cardiovascular: Heart rate NL, Regular rhythm, Heart sounds NL, No murmurs Abdomen: Soft, Non-tender, No guarding, No rebound Back: Atraumatic, Full range of motion Head / Eyes: Normocephalic, PERRL, EOMI ENT: Airway patent, Mucous membranes moist Skin: Atraumatic, Color NL, No rash, Warm, Dry surgical scars healing well Neurologic: Oriented X3, Speech NL, No motor deficits, No sensory deficits Neck: Supple, Full range of motion Psychiatric: Affect NL, Mood NL Interpretation & Diagnostics US Abdomen: Initial read by US optics manufacturing technician: normal Lab Results Interpretation Result Diagram: 09/27/16 1325 09/27/16 1325 Test 09/27/16 13:25 White Blood Count 8.9th/mm3 (3.8-10.1) Red Blood Count 4.23mil/mm3 (3.90-5.20) Hemoglobin 12.9g/dL (12.0-15.6) Hematocrit 38.3% (35.0-46.0) Mean Corpuscular Volume 90.5fL (81-100) Mean Corpuscular Hemoglobin 30.5pg (27.0-35.0) Mean Corpuscular Hemoglobin Concent 33.7% (32.0-37.0) Red Cell Distribution Width 15.0% (12.3-15.4) Platelet Count 210bil/L (150-400) Neutrophils (%) (Auto) 86.4% (40-74) Lymphocytes (%) (Auto) 7.3% (14-46) Monocytes (%) (Auto) 5.5% (4-12) Eosinophils (%) (Auto) 0.3% (0-5) Basophils (%) (Auto) 0.3% (0-3) Sodium Level 134mEq/L (134-144) Potassium Level 3.7mEq/L (3.5-5.2) Chloride Level 95mEq/L (97-108) Carbon Dioxide Level 23mmol/L (18-29) Blood Urea Nitrogen 6mg/dL (8-27) Creatinine 0.57mg/dL (0.57-1.00) Estimat Glomerular Filtration Rate 152mL/min (>59) Glucose Level 124mg/dL (60-99) Calcium Level 9.6mg/dL (8.5-10.1) Total Bilirubin 0.5mg/dL (0.0-1.2) Aspartate Amino Transf (AST/SGOT) 22U/L (0-50) Alanine Aminotransferase (ALT/SGPT) 12U/L (0-32) Alkaline Phosphatase 41U/L (25-165) Total Protein 6.6g/dL (6.4-8.4) Albumin 4.3g/dL (3.4-5.0) Hold Luna Top Tube Received (Received) Re-Eval/Medical Decision Med Decision/Clinical Course 66-year-old female presenting to days as post cystocele and vaginal prolapse repair by COMPOSITION WORKER. Discharge as she has been unable to void since then. 750 came out when Caballero placed. No postvoid residual. No hydronephrosis on ultrasound. Labs are stable. Discussed with urology as well as her COMPOSITION WORKER who both recommend discharging home with Caballero with plan to follow-up with COMPOSITION WORKER on Saturday. Return precautions given if any worsening abdominal pain, fevers, inability to void, any other new or worsening symptoms. Source of Hx: Old records Re-Evaluation/Progress : Time of Eval: 15:04 Re-Evaluation/Progress Note: Rechecked patient. Discussed results and plan for discharge. The patient understands and agrees to the plan for discharge. All questions were addressed. Consultation #1: Referral / Consult Name: Reyna John MD Consulted With: Urology Call Returned at: 14:51 Linux Server Engineer: Agrees with eval, Agrees with plan Note: Consult with Dr. John urology who recommends that the patient follow up with her OBGYN on Saturday. Consultation #2: Referral / Consult Name: Jacob Marquis MD Consulted With: On-call physician (OBGYN) Call Returned at: 14:56 Linux Server Engineer: Agrees with eval, Agrees with plan Note: Consult with Dr. Marquis OBGYSrinivasan who recommends the patient be discharged and should follow up with him next week. Counseled Regarding: Diagnosis, Lab results, Need for follow-up, When/why to return to ED Discharge & Departure Primary Impression: Obstructive uropathy Additional Impression: Post surgical complication Disposition: Home Discharge Condition All VS Reviewed: Yes Condition: Stable Additional Instructions: Follow up with your OBGYN on Saturday. Please return to the emergency department if you develop any new or worsening symptoms. Referrals: Peggy Martinez (PCP) Scribe Attestation Portions of this note were transcribed by Hayley Dean and Fab Cr. I, Dr. Chi personally performed the history, physical exam and medical decision-making; I reviewed and confirmed the accuracy of the information in the transcribed note. Signed by: Hayley Dean and Marcella Chavira, and [id number]. copies to: Peggy Martinez Ben M MD Sep 27, 2016 12:33 Johanny Dean Sep 27, 2016 13:14 FAB CR Sep 27, 2016 14:06
[2016-09-27] MEDS ORDERED: 0.9% Sodium Chloride 1,000 ML IV ONE (13:10)
[2016-09-27] MEDS ORDERED: Ondansetron 2 mg/mL 2 mL Inj IVPUSH PRN (13:10)
[2016-09-27 13:32] LABS: BASOPHILS % (AUTO) 0.3 % (0-3); EOSINOPHILS % (AUTO) 0.3 % (0-5); MONOCYTES % (AUTO) 5.5 % (4-12); Mean Corpuscular Hemoglobin 30.5 pg (27.0-35.0); Mean Corpuscular Volume 90.5 fL (81-100); NEUTROPHILS % (AUTO) 86.4 % (40-74); Platelet Count 210 bil/L (150-400)
[2016-09-27] MEDS: HYDROmorphone 0.5 mg/0.5 mL iSecure Syringe IVPUSH PRN ×2 (13:51→15:05)
--- NOTE | 2016-09-27 16:02 | DRSVH ---
PROCEDURE: US RENAL SONOGRAM INDICATIONS: inability to void TECHNIQUE: Real-time scanning was performed of the kidneys and bladder, with image documentation. COMPARISON: [facility], CT, CT KUB, 06/27/2016, 10:10. FINDINGS: Kidneys: Kidneys are normal in size. Right kidney measures 10.2 cm long; left kidney measures 11.2 cm long. Right renal cortical thickness is 1.1 cm; left renal cortical thickness is 1.5 cm. Renal c ortical echotexture is normal. No hydronephrosis or nephrolithiasis. No suspicious solid mass lesio ns. Bladder: Caballero catheter decompresses the urinary bladder. Miscellaneous: No free pelvic fluid. IMPRESSION: No hydronephrosis. Dictated by: Brandon ROMO Interpreted: Nya Costa MD on 09/27/2016 at 16:00 Transcribed by: AYESHA on 09/27/2016 at 16:01 Approved by: Nya Costa M.D. on 09/27/2016 at 16:53
== END 2016-09-27 16:15 | disposition home or self-care (01) ==
LOC: SED 12:12
DX: N13.9 Obstructive and reflux uropathy, unspecified (principal); N99.89 Other postprocedural complications and disorders of genitourinary system; Y84.8 Other medical procedures as the cause of abnormal reaction of the patient, or of later complication, without mention of misadventure at the time of the procedure; Y92.9 Unspecified place or not applicable; Y99.8 Other external cause status; Z86.73 Personal history of transient ischemic attack (TIA), and cerebral infarction without residual deficits; Z88.0 Allergy status to penicillin; Z88.5 Allergy status to narcotic agent; Z88.8 Allergy status to other drugs, medicaments and biological substances; Z91.041 Radiographic dye allergy status
CPT/HCPCS: 51702; 76770; 80053; 85025; 96361; 96374; 96375; 96376; 99285; J1170; J2405; J7030

== ENCOUNTER 2016-09-29 13:24 | Emergency (ER) | payer MEDICARE, OTHER ==
[~2016-09-29] VITALS: Ht 162.6 cm; Wt 70.5 kg
[2016-09-29 13:29] VITALS: BP 170/104; PULSE 78; RESP 16; O2SAT 98
--- NOTE | 2016-09-29 13:36 | ED.REPORT ---
HPI- Female Date of Service Sep 29, 2016 ED Provider: Fer Vail DO The patient is a 66 year old female with history of urinary incontinence s/p bladder mesh, pyelonephritis, s/p hysterectomy, and recent cystocele and salpingo-oophorectomy on September [address] Ovalles, who presents to the emergency department complaining of a catheter problem. The patient states the day after her surgery the catheter was removed and she was unable to urinate. They did an ultrasound several hours later and found about 900 cc urine in her bladder. She was able to urinate a small amount at a time and was discharged home on 09/26/16. The next day (09/27/16) she came to the emergency department due to severe lower abdominal pain and had 1500 cc urine removed by Caballero catheter. The catheter was left in at discharge. Last night she woke up in severe pain with a "burning" bladder. She called the on-call doctor (Dr. Yost) today who recommended she was evaluated in the emergency department. She also reports that Dr. Ramirez told her that she needs to have the catheter removed and she should be observed for several hours. She also states she has experienced fever, chills, decreased appetite, and nausea. She stopped taking the Dilaudid yesterday due to constipation and upset stomach. Nursing Notes Stated Complaint: CATHETER HURTS/POST SURGERY Chief Complaint: General Complaint Nursing Notes Reviewed: Yes Allergies: Coded Allergies: Contrast Media (Verified Allergy, Severe, stopped breathing, 09/29/16) hydrocodone (Verified Allergy, Severe, n/v, 09/29/16) lisinopril (Verified Allergy, Severe, leg swelling, 09/29/16) morphine (Verified Allergy, Severe, n/v, 09/29/16) Penicillins (Verified Allergy, Intermediate, hives, and swelling, 09/29/16) amlodipine (Verified Allergy, Unknown, peripheral edema, 09/29/16) atenolol (Verified Allergy, Unknown, peripheral edema, 09/29/16) iodine (Verified Allergy, Unknown, 09/29/16) oxycodone (Verified Allergy, Unknown, nausea/vomiting, 09/29/16) Scheduled ([biotin]) 1 TAB DAILY ([selenium]) 1 TAB PO DAILY Cholecalciferol (Vitamin D3) (Vitamin D3) 5,000 Unit Tablet 5,000 UNIT PO DAILY Hydrochlorothiazide (Hydrochlorothiazide) 25 Mg Tablet 25 MG PO DAILY Magnesium Oxide (Magnesium) 400 Mg Tablet 800 MG PO DAILY Multivitamin (Multi Vitamin Daily) 1 Each Tablet 1 EACH PO DAILY Polyethylene Glycol 3350 (Miralax) 17 Gm Powd.pack 17 GM PO DAILY Potassium Gluconate (Potassium) 99 Mg Tablet 99 MG PO DAILY Sulfamethoxazole/Trimeth 800-160 mg (Bactrim DS 800-160 mg) 1 Each Tablet 1 TABLET PO BID Scheduled PRN Albuterol Sulfate (Ventolin HFA Inhaler) 200 Puff/18 Gm Inhaler 1 PUFF INH Q4 PRN PRN For Wheezing Alprazolam (Alprazolam) 1 Mg Tablet 1 MG PO BID PRN PRN For Anxiety Bisacodyl (Dulcolax Rectal) 10 Mg Supp.rect 10 MG RC DAILY PRN PRN constipation Docusate Sodium (Colace) 100 Mg Capsule 100 MG PO BID PRN PRN For Constipation Hydromorphone (Dilaudid) 2 Mg Tablet 2 MG PO Q4H PRN PRN Pain Promethazine (Promethazine) 25 Mg Tablet 25 MG PO Q6H PRN PRN For Nausea diphenhydrAMINE HCl (Benadryl) 25 Mg Capsule 25 MG PO Q4 PRN PRN For Itching General Time Seen by MD: 13:35 Chief Complaint Abdominal pain..., Other (catheter problem) Hx Obtained From: Patient Arrived By: Walk-in Sudden in Onset?: Yes Onset Occurred: 4 days ago Symptom Duration: Since onset Location: : Abdomen lower: Suprapubic Quality: Burning, Painful Radiation: Does not radiate Severity: Current: Moderate Severity: Maximum: Severe Recent Healthcare: Recent doctor visit, Recent hospitalization, Previous surgery Similar Sx Previous: Yes Past Medical History Past Medical History Notes: Iodine allergy: anaphylaxis Past Medical History Hx urinary incontinence, s/p bladder mesh Hx pyelonephritis Hx of stroke x9 Past Surgical History Bladder mesh Bladder lift Partial hysterectomy Right mastoidectomy Tympanoplasty Cystocele repair Vaginal prolapse repair Salpingo-oophorectomy Family History Noncontributory Smoking History Never Smoker Social History Drug Use: THC Other Social History: Good social support, , Local resident Ambulatory Status Independent Review of Systems Review of Systems Note: +decreased appetite Constitutional: Reports: Chills, Fever GI: Reports: Abdominal pain, Nausea Female: Reports: Pelvic pain, Urination decreased Complete sys rev & neg: except as marked. Physical Exam Initial Vital Signs Vital Signs (First) Date Time Temp Pulse Resp B/P Pulse Ox O2 Delivery O2 Flow Rate FiO2 09/29/16 13:29 36.1 78 16 170/104 98 Room Air Initial VS: Reviewed Head / Eyes: Atraumatic, Normocephalic, PERRL ENT: Mucous membranes moist, Conjunctiva normal, No scleral icterus Neck: Supple, Non-tender, Full range of motion Respiratory: Breath sounds normal, Clear to auscultation, No respiratory distress Cardiovascular: Regular rate & rhythm, Heart sounds normal, Intact distal pulses Lymphatic: No lymphadenopathy Extremities: Vascular intact, Neuro intact, No swelling, No tenderness Skin: Warm, Dry, No cyanosis Neurologic: Alert, Oriented, Nonfocal Psychiatric: Mood/affect normal, Behavior normal, Normal thought content Female Genitourinary: Exam deferred General/Constitutional: Awake, Alert, Cooperative Abdomen: Soft, No guarding, No rebound, BS normoactive, No distention, No hernia, No palpable mass, No pulsatile mass Suprapubic tenderness. Laparoscopic surgical sites are clean and dry. Interpretation & Diagnostics Interpretation & Diagnostics: Post void residual: 395 cc Lab Results Interpretation Test 09/29/16 14:29 Urine Color [place] (YELLOW) Urine Appearance Clear (CLEAR,HAZY) Urine pH (5.0-8.0) Urine Specific [place] 1.009 (1.003-1.035) Urine Protein mg/dL (NEG,TRACE) Urine Glucose (UA) mg/dL (NEGATIVE) Urine Ketones mg/dL (NEGATIVE) Urine Occult Blood (NEGATIVE) Urine Nitrite (NEGATIVE) Urine Bilirubin (NEGATIVE) Urine Urobilinogen mg/dL (NORMAL) Urine Leukocyte Esterase (NEGATIVE) Urine RBC 0-2/hpf (0-2) Urine WBC 0-5/hpf (0-5) Urine Epithelial Cells Occasional/hpf (NONE-MOD) Urine Crystals None seen (NONE SEEN) Urine Bacteria None/hpf (NONE-FEW) Urine Hyaline Casts None/lpf (NONE) Urine Granular Casts None seen (NONE SEEN) Urine Waxy Casts None seen (NONE SEEN) Urine Red Blood Cell Casts None seen (NONE SEEN) Urine White Blood Cell Casts None seen (NONE SEEN) Urine Mucus None seen (None Seen) Urine Trichomonas None seen (NONE SEEN) Urine Yeast None (NONE SEEN) Urinalysis Comment Color interference Urine Culture Reflexed Not indicated Re-Eval/Medical Decision Med Decision/Clinical Course Overall this truly seems that the patient has focal irritation due to her catheter. After the catheter was removed she was feeling better however she continues to be in urinary retention. Discussed with the on-call GRADUATE TEACHING ASSISTANT who agrees with reinserting a catheter. I discussed with the patient we will try a smaller gauge catheter and the silicone based catheter. Recommend that she follow-up as an outpatient with her GRADUATE TEACHING ASSISTANT as planned in 3 days. Return precautions given. Source of Hx: Old records Re-Evaluation/Progress #1: Time of Eval: 16:34 Re-Evaluation/Progress Note: The patient is only urinating about 50 cc at a time. Re-Evaluation/Progress #2: Time of Eval: 17:21 Re-Evaluation/Progress Note: Rechecked the patient. She is going to try to urinate again. Will get another post void residual then we will call Dr. Yost. Re-Evaluation/Progress #3: Time of Eval: 17:39 Re-Evaluation/Progress Note: Repeat post void residual: 407 mL Re-Evaluation/Progress #4: Time of Eval: 17:43 Re-Evaluation/Progress Note: Rechecked the patient. Discussed plan. All questions were addressed. Consultation #1: Referral / Consult Name: Nanci Yost MD Call Returned at: 14:02 Note: Spoke with the on-call OBGYN. She recommends removing the catheter and getting a UA. If she can void she can go home. Consultation #2: Referral / Consult Name: Nanci Yost MD Call Returned at: 17:40 Western Philosophy Professor: Agrees with eval, Agrees with plan Note: She recommends placing another Caballero. She recommends using a duet catheter with two bulbs. Counseled Regarding: Diagnosis, Lab results, Need for follow-up, When/why to return to ED Discharge & Departure Impression: Primary Impression: Urinary retention Disposition: Home Discharge Condition All VS Reviewed: Yes Condition: Stable Additional Instructions: Thank you for entrusting us with your care today. Dr. Yost recommended leaving a catheter in until you are re-evaluated. You should be seen by Dr. Ovalles on Saturday. Please return to the emergency department if you develop a fever, vomiting, or any other new or concerning symptoms. Referrals: Neel Murray DO (PCP) Sylvain Ovalles MD Attestation Portions of this note were transcribed by Alena Lutz. I, Dr. Vail personally performed the history, physical exam and medical decision-making; I reviewed and confirmed the accuracy of the information in the transcribed note. Signed by: Marcella Medina, 09/29/2016 at 1800. copies to: Neel Murray DO; Sylvain Ovalles MD, Timothy S DO Sep 29, 2016 13:36 Alena Lutz Sep 29, 2016 13:46
[2016-09-29] MEDS ORDERED: 0.9% Sodium Chloride 1,000 ML IV ONE (14:05)
[2016-09-29 14:53] LABS: APPEARANCE,URINE CLEAR (CLEAR,HAZY); COLOR,URINE ORANGE (YELLOW)
[2016-09-29] MEDS ORDERED: 0.9% Sodium Chloride 1,000 ML IV SCH (15:55)
[2016-09-29 16:26] VITALS: BP 156/83; PULSE 58; O2SAT 97
[2016-09-29 19:15] VITALS: BP 154/81; PULSE 62; O2SAT 96
== END 2016-09-29 19:21 | disposition home or self-care (01) ==
LOC: SED 13:24
DX: T83.098A Other mechanical complication of other urinary catheter, initial encounter (principal); R33.9 Retention of urine, unspecified; Y84.8 Other medical procedures as the cause of abnormal reaction of the patient, or of later complication, without mention of misadventure at the time of the procedure; Y93.9 Activity, unspecified; Y92.9 Unspecified place or not applicable; Y99.8 Other external cause status; Z86.73 Personal history of transient ischemic attack (TIA), and cerebral infarction without residual deficits; Z90.710 Acquired absence of both cervix and uterus; Z79.899 Other long term (current) drug therapy; Z88.0 Allergy status to penicillin; Z88.5 Allergy status to narcotic agent; Z88.8 Allergy status to other drugs, medicaments and biological substances; Z91.041 Radiographic dye allergy status
CPT/HCPCS: 51798; 81000; 99284; J7030